=== PATIENT | female | born 1935 | race Caucasian/White ===

== ENCOUNTER 2017-04-07 09:44 | Outpatient (CLI) | payer OTHER ==
[~2017-04-07 09:44] MED LIST: METFORMIN HCL500 MG
== END 2017-04-07 14:51 | disposition home or self-care (01) ==
LOC: RX STUDY 09:44
DX: R13.10 Dysphagia, unspecified (principal); R10.13 Epigastric pain; K22.4 Dyskinesia of esophagus

== ENCOUNTER 2017-07-03 09:08 | Outpatient (CLI) | payer OTHER | END 2017-07-03 17:00 | disposition home or self-care (01) | LOC: TOM 09:08 | DX: R31.21 Asymptomatic microscopic hematuria (principal) ==

== ENCOUNTER → 2017-09-19 08:18 | Outpatient (CLI) | payer OTHER | END | disposition home or self-care (01) | LOC: LAB 08:18 | DX: I10 Essential (primary) hypertension (principal); E03.8 Other specified hypothyroidism; E78.00 Pure hypercholesterolemia, unspecified; E11.65 Type 2 diabetes mellitus with hyperglycemia; E55.9 Vitamin D deficiency, unspecified ==

== ENCOUNTER 2018-01-16 07:22 | Outpatient (CLI) | payer OTHER | END 2018-01-16 07:42 | disposition home or self-care (01) | LOC: LAB 07:22 | DX: E11.65 Type 2 diabetes mellitus with hyperglycemia (principal); I10 Essential (primary) hypertension ==

== ENCOUNTER 2018-06-21 07:28 | Outpatient (CLI) | payer OTHER | END 2018-06-21 07:32 | disposition home or self-care (01) | LOC: LAB 07:28 | DX: E11.65 Type 2 diabetes mellitus with hyperglycemia (principal); E03.8 Other specified hypothyroidism; E66.01 Morbid (severe) obesity due to excess calories; N39.0 Urinary tract infection, site not specified; E55.9 Vitamin D deficiency, unspecified; Z00.8 Encounter for other general examination; Z12.11 Encounter for screening for malignant neoplasm of colon; R07.89 Other chest pain; E78.49 Other hyperlipidemia ==

== ENCOUNTER 2019-06-01 08:46 | Outpatient (CLI) | payer OTHER | END 2019-06-01 09:02 | disposition home or self-care (01) | LOC: LAB 08:46 | DX: E03.8 Other specified hypothyroidism (principal); I10 Essential (primary) hypertension; E11.9 Type 2 diabetes mellitus without complications; E78.49 Other hyperlipidemia ==

== ENCOUNTER 2019-07-12 10:53 | Outpatient (CLI) | payer OTHER | END 2019-07-15 11:11 | disposition home or self-care (01) | LOC: SONOGRAMA 10:53 | DX: R31.29 Other microscopic hematuria (principal) ==

== ENCOUNTER 2020-12-29 10:33 | Inpatient (IN) | payer OTHER ==
[~2020-12-29] VITALS: Ht 157.5 cm; Wt 102.5 kg
[2021-01-01] MEDS ORDERED: METFORMIN HCL500 M4 (14:38)
[2021-01-01] MEDS ORDERED: GLIPIZIDE5 MG (14:38)
[2021-01-01] MEDS ORDERED: ATORVASTATIN CA20 MG (14:38)
[2021-01-01] MEDS ORDERED: FUROSEMIDE20 MG (14:38)
[2021-01-01] MEDS ORDERED: HYDROCHLOROTH12.5 MG (14:38)
[2021-01-01] MEDS ORDERED: LISINOPRIL10 MG (14:38)
[2021-01-01] MEDS ORDERED: CARVEDILOL12.5 M1 (14:38)
[2021-01-01] MEDS ORDERED: TRANDOLAPR-VER1 EACH (14:39)
== END 2021-01-02 14:30 | disposition home or self-care (01) | DRG 310 ==
LOC: ER 10:33 → MEDI 17:06
PROVIDERS: ADMIT Internal Medicine; ATTEND Internal Medicine
PROC: 4A12X4Z Monitoring of Cardiac Electrical Activity, External Approach (ICD-10-PCS; principal; 2020-12-29)
PROC: 3E0F7SF Introduction of Other Gas into Respiratory Tract, Via Natural or Artificial Opening (ICD-10-PCS; 2020-12-30)
DX: I48.91 Unspecified atrial fibrillation (principal); I10 Essential (primary) hypertension; E11.9 Type 2 diabetes mellitus without complications; Z20.822 Contact with and (suspected) exposure to COVID-19; Z79.4 Long term (current) use of insulin

== ENCOUNTER 2021-02-20 06:11 | Inpatient (IN) | payer OTHER ==
[~2021-02-20] VITALS: Ht 157.5 cm; Wt 102.1 kg
[~2021-02-20 06:11] MED LIST changes: +ATORVASTATIN CA20 MG; +CARVEDILOL12.5 M1; +FUROSEMIDE20 MG; +GLIPIZIDE5 MG; +HYDROCHLOROTH12.5 MG; +LISINOPRIL10 MG; +METFORMIN HCL500 M4; +TRANDOLAPR-VER1 EACH
--- NOTE | 2021-02-20 06:15 | NUR ---
SE RECIBE PACIENTE EN COMPANIA DE PERSONAL DE EMERGENCIAS MEDICAS Y FAMILIARES PRESENTANDO DIFICULTAD AL RESPIRAR. RESPIRACIONES ABDOMINALES, CANALIZADA EN BRAZO SAGAR CON ANGIO #20. CANULA NASAL A 4LTS. PTE ALERTA CONSCIENTE Y ORIENTADA EN PERSONA. SE ESTIMAN VITALES Y SE COLOCA EN AREA DE CRITICO. SE CONECTA A MONITOR CARDIACO Y OXIMETRIA DE PULSO. PTE EVALUADO POR DR. BOWENS.
[2021-02-20] MEDS ORDERED: JANUMET 50-1,01 EACH (07:06)
[2021-02-20] MEDS ORDERED: ELIQUIS5 MG (07:07)
[2021-02-20] MEDS ORDERED: [UNRECOGNIZED DRUG - SUPPLY] (07:07)
== END 2021-03-08 21:30 | disposition home or self-care (01) | DRG 308 ==
LOC: ER 06:11 → ICU-2 09:59 → MEDJ 02-24 08:00
PROVIDERS: ADMIT Internal Medicine; ATTEND Internal Medicine
PROC: 0BH17EZ Insertion of Endotracheal Airway into Trachea, Via Natural or Artificial Opening (ICD-10-PCS; principal; 2021-02-20)
PROC: 5A09457 Assistance with Respiratory Ventilation, 24-96 Consecutive Hours, Continuous Positive Airway Pressure (ICD-10-PCS; 2021-02-20)
PROC: 4A033R1 Measurement of Arterial Saturation, Peripheral, Percutaneous Approach (ICD-10-PCS; 2021-02-20)
PROC: 0W993ZX Drainage of Right Pleural Cavity, Percutaneous Approach, Diagnostic (ICD-10-PCS; 2021-02-22)
PROC: 3E0F7SF Introduction of Other Gas into Respiratory Tract, Via Natural or Artificial Opening (ICD-10-PCS; 2021-02-22)
PROC: 4A12X4Z Monitoring of Cardiac Electrical Activity, External Approach (ICD-10-PCS; 2021-02-24)
DX: I48.20 Chronic atrial fibrillation, unspecified (principal); I46.2 Cardiac arrest due to underlying cardiac condition; J98.11 Atelectasis; I11.0 Hypertensive heart disease with heart failure; I50.9 Heart failure, unspecified; Z20.822 Contact with and (suspected) exposure to COVID-19; Z79.01 Long term (current) use of anticoagulants

== ENCOUNTER 2021-05-17 09:23 | Inpatient (IN) | payer OTHER ==
[~2021-05-17] VITALS: Ht 162.6 cm; Wt 81.6 kg
[~2021-05-17 09:23] MED LIST changes: +ELIQUIS5 MG; +JANUMET 50-1,01 EACH; +[UNRECOGNIZED DRUG - SUPPLY]
[2021-05-17] MEDS ORDERED: CLONAZEPAM0.5 MG PO (09:42)
[2021-05-17] MEDS ORDERED: AMIODARONE50 MG/1 ML (09:43)
[2021-05-17] MEDS ORDERED: LASIX20 MG PO (09:43)
[2021-05-17] MEDS ORDERED: CARVEDILOL3.125 M1 PO (09:44)
== END 2021-05-31 15:17 | disposition designated cancer center or children's hospital (05) | DRG 292 ==
LOC: ER 09:23 → ICU-2 14:40 → SURG 14:40
PROVIDERS: ADMIT Internal Medicine; ATTEND Internal Medicine
PROC: 02HV33Z Insertion of Infusion Device into Superior Vena Cava, Percutaneous Approach (ICD-10-PCS; principal; 2021-05-20)
PROC: 4A12X4Z Monitoring of Cardiac Electrical Activity, External Approach (ICD-10-PCS; 2021-05-20)
DX: I50.33 Acute on chronic diastolic (congestive) heart failure (principal); I48.21 Permanent atrial fibrillation; I24.9 Acute ischemic heart disease, unspecified; N39.0 Urinary tract infection, site not specified; I11.0 Hypertensive heart disease with heart failure; I27.29 Other secondary pulmonary hypertension; I25.10 Atherosclerotic heart disease of native coronary artery without angina pectoris; E11.9 Type 2 diabetes mellitus without complications; J44.9 Chronic obstructive pulmonary disease, unspecified; E66.01 Morbid (severe) obesity due to excess calories; E78.5 Hyperlipidemia, unspecified; B96.1 Klebsiella pneumoniae [K. pneumoniae] as the cause of diseases classified elsewhere